=== PATIENT | male | born 1995 | race Caucasian/White ===

== ENCOUNTER 2018-02-04 20:57 | Emergency (ER) | payer OTHER ==
[~2018-02-04] VITALS: Ht 188 cm; Wt 72.6 kg
[~2018-02-04 20:57] MED LIST: DOXYCYCLINE 10100 M1; FLEXERIL PO; IBUPROFEN 600600 M1 PO; KEFLEX250 MG PO; LIDOCAINE VISC100 M1 MM; NORCO 5-325 TA1 EACH PO
[2018-02-04] MEDS ORDERED: FLEXERIL PO (21:51)
[2018-02-04] MEDS ORDERED: IBU800 MG PO (21:51)
[2018-02-04 22:57] VITALS: BP 101/60
== END 2018-02-04 22:57 | disposition home or self-care (01) ==
LOC: M.ERS 20:57
DX: S43.491A Other sprain of right shoulder joint, initial encounter (principal); Z88.5 Allergy status to narcotic agent; X50.0XXA Overexertion from strenuous movement or load, initial encounter; Y93.89 Activity, other specified; Y92.89 Other specified places as the place of occurrence of the external cause; Y99.8 Other external cause status

== ENCOUNTER 2018-04-19 07:54 | Emergency (ER) | payer OTHER ==
[~2018-04-19] VITALS: Ht 188 cm; Wt 68.0 kg
[~2018-04-19 07:54] MED LIST changes: +IBU800 MG PO
[2018-04-19] MEDS ORDERED: ULTRAM 50MG TAB50 MG PO (08:22)
[2018-04-19 08:35] VITALS: BP 108/63
== END 2018-04-19 08:36 | disposition home or self-care (01) ==
LOC: M.ERS 07:54
DX: S70.11XA Contusion of right thigh, initial encounter (principal); Z88.5 Allergy status to narcotic agent; V49.69XA Unspecified car occupant injured in collision with other motor vehicles in traffic accident, initial encounter; Y93.89 Activity, other specified; Y92.89 Other specified places as the place of occurrence of the external cause; Y99.8 Other external cause status